=== PATIENT | female | born 1950 | race Caucasian/White ===

== ENCOUNTER → 2016-09-14 | Outpatient (CLI) | payer MEDICARE, OTHER ==
--- NOTE | ~2016-09-14 | MY11 ---
[facility] A Service [facility] RADIOLOGY TEXT RESULTS PATIENT: JIMMY CAR LOCATION: [facility] : 50 UNIT #: [id number] AGE: [address]: Dionne Puente APRN SEX: F ORDER DR: [id number] [facility] [address] [place], [place] [address] [id number] MR#: [id number] Acc #: [id number] NAME: JIMMY CAR : 1950 SEX: F STUDY DATE/TIME: 09/14/2016 8:48 UNIT: [facility] ROOM: STUDY DESCRIPTION: MY Mammogram Screening Dig Melvin Attending Physician: Dionne Puente A.P.R.N. Ordering Physician: Dionne Puente A.P.R.N. Primary Care Physician: Dionne Puente A.P.R.N. MEDICAL IMAGING REPORT This report is preliminary unless electronic signature is present EXAM Digital screening mammogram with CAD INDICATIONS Routine screening. PROCEDURE Bilateral CC and MLO views obtained on a digital mammography unit FDA-approved CAD device was utilized. COMPARISON 11/01/07 FINDINGS Scattered fibroglandular density. No dominant mass or suspicious calcification. IMPRESSION Negative screening mammogram screen interval 1 year suggested. Patients over the age of 40 are entered into a reminder system with target due date for the next mammogram. A result letter will also be sent to the patient. BIRADS: 1 - negative Dictated by... Kalpesh Hung M.D. THIS IS AN ELECTRONICALLY VERIFIED REPORT [facility] A Service [facility] RADIOLOGY TEXT RESULTS PATIENT: JIMMY CAR LOCATION: [facility] : 50 UNIT #: [id number] AGE: [address]: Dionne Puente APRN SEX: F ORDER DR: Kalpesh Hung M.D. at 09/15/2016 7:08 AM Mario TD: 09/14/2016 11:10 JOB #: [id number] MEDICAL IMAGING REPORT COPY
== END | disposition home or self-care (01) ==
LOC: CWCC 08:34
DX: Z12.31 Encounter for screening mammogram for malignant neoplasm of breast (principal)
CPT/HCPCS: G0202